=== PATIENT | female | born 1985 | race Two or more races ===

== ENCOUNTER 2020-12-20 11:08 | Emergency (ER) | payer MEDICAID, OTHER ==
[~2020-12-20] VITALS: Ht 160 cm; Wt 81.6 kg
[2020-12-20 13:15] VITALS: BP 115/74
== END 2020-12-20 13:31 | disposition home or self-care (01) ==
LOC: ER 11:08
DX: S92.354A Nondisplaced fracture of fifth metatarsal bone, right foot, initial encounter for closed fracture (principal); X50.1XXA Overexertion from prolonged static or awkward postures, initial encounter; Y93.89 Activity, other specified; Y92.89 Other specified places as the place of occurrence of the external cause; Y99.8 Other external cause status
CPT/HCPCS: 29515; 73630

== ENCOUNTER 2022-06-19 14:34 | Emergency (ER) | payer MEDICAID ==
[~2022-06-19] VITALS: Ht 160 cm; Wt 81.6 kg
[2022-06-19] MEDS ORDERED: IBUPROFEN 600 MG TAB PO ONE (16:15)
[2022-06-19 16:46] VITALS: BP 127/75
[2022-06-19] MEDS ORDERED: TETANUS-DIPTH-ACEL PERTUSSIS 0.5ML SYR Tdap IM ONE (17:30)
[2022-06-19] MEDS ORDERED: CIPR-173 PO (17:52)
[2022-06-19] MEDS ORDERED: IBUP600T27 PO (17:52)
== END 2022-06-19 18:00 | disposition home or self-care (01) ==
LOC: ER 14:34
DX: S91.331A Puncture wound without foreign body, right foot, initial encounter (principal); W22.8XXA Striking against or struck by other objects, initial encounter; Y93.89 Activity, other specified; Y92.89 Other specified places as the place of occurrence of the external cause; Y99.8 Other external cause status
CPT/HCPCS: 73630; 90471; 90715